=== PATIENT | female | born 1945 | race Caucasian/White ===

== ENCOUNTER 2017-03-08 22:39 | Emergency (ER) | payer MEDICARE ==
[~2017-03-08] VITALS: Ht 160 cm; Wt 69.2 kg
--- OUTSIDE RECORDS SUMMARY | 2017-03-08 22:45 | XMS REPORT | Continuity of Care Document ---
Author Author [facility] Organization [facility] Address Unknown Phone Unavailable Allergies Active Description Code Type Severity Reaction Onset Reported/Identified Relationship to Patient Clinical Status Yes No Known Allergies No Known Allergies Drug Allergy Unknown N/A 04/06/2014 Medications Problems Date Dx Coded Attending Type Code Diagnosis Diagnosed By 06/10/2013 Bryce Almonte MD(NAME ALERT) A 784.0 HEADACHE Procedures Results Encounters ACCT No. Visit Date/Time Discharge Status Pt. Type Provider Facility Loc./Unit Complaint [id number] 04/06/2014 11:23:00 2013 13:36:00 DIS Emergency Shira DAWN, Jamal Brown [facility] W.EDN [id number] 06/10/2013 15:30:00 2012 15:30:00 DIS Outpatient Bryce Almonte MD(NAME ALERT) [facility] W[facility]RAC
--- NOTE | 2017-03-08 23:00 | NUR ---
STATUS PT IS SEATED IN LOBBY WITH FAMIL, REDNESS AND SWELLING IS NOTED TO THE PT NOSE, BUT PT SHOWS NO S/S OF ACUTE DISTRESS AND IS VISITING WITH THOSE AROUND HER.
[2017-03-08 23:15] VITALS: Ht 160 cm; Wt 69.2 kg
[2017-03-09] MEDS ORDERED: BENZ-16 PO (00:03)
[2017-03-09] MEDS ORDERED: ALEN70TA48 PO (00:03)
[2017-03-09] MEDS ORDERED: ESOM40CA54 PO (00:03)
--- NOTE | 2017-03-09 00:16 | ERPDOC ---
Departure Disposition Decision Date: March 09, 2017 Disposition Decision Time: 00:15 Disposition: 01 DISCHARGED HOME, SELF-CARE Impression Impression Impression: Primary Impression: Nasal contusion Severity: Mild Condition: Improved Seen By: Physician only Patient Instructions: Facial Contusion (ED) Problems/Meds/Labs Reviewed?: Yes Medications reviewed and manag: Yes Additional Instructions: Use Tylenol as needed for pain, up to 1000 mg 4 times daily Cool pack to the nose as needed for comfort and swelling Follow up care ordered?: Yes Mental Status: Alert, Oriented [facility] General General Chief Complaint: Maxillofacial Injury Stated Complaint: POSS BROKEN NOSE Time Seen by Provider: 00:12 Source: patient, family Exam Limitations: language barrier [facility] General Initial Comments Patient was kicked in the face with a soccer ball several hours ago, striking her glasses and causing a large bruise to the left side of her nose. Family wanted the patient evaluated to be sure she didn't have a broken nose or need any emergency intervention. Patient has minimal pain at this time, no bleeding, had no loss of consciousness and her only other complaint is mild tenderness to the lateral left side of the nose. Occurred At: home Onset/Timing: Rapid Severity: mild Location: nose 1 - Minimal swelling with mild abrasion. Associated Symptoms: facial pain/swelling, DENIES: change in hearing, cough, drooling, ear drainage, fever, malaise, nasal congestion/drainage, poor fluid intake, sinus infection, sore throat, tooth pain, voice change Allergies: Coded Allergies: No Known Allergies (Unverified , 03/08/17) Past History Past Medical History Pt denies signifigant H Surgical History Denies Surgeries Social History Smoking Status: Never smoker Does patient use chewing tobac: No Second Hand Exposure: No Substance Use Type: does not use Review of Systems Constitutional Constitutional: DENIES: appetite decrease, appetite increase, chills, dizziness , fever, weakness ENMT Ears: DENIES: pain Hearing: DENIES: hearing loss, tinnitus Balance: DENIES: vertigo Nose: pain Mouth/Throat: DENIES: change in swallowing, change in voice, hoarsness, painful swallowing, sore throat Cardiovascular Cardiac: DENIES: chest pain, dyspnea on exertion Rhythm/Rate: DENIES: irregular beat, palpitations, tachycardia Vascular: DENIES: pedal edema Pulmonary Respiratory: DENIES: cough, dyspnea, pleuritic chest pain GI Upper Abdomen: DENIES: dysphagia, heartburn/indigestion, nausea, pain, vomiting Lower Abdomen: DENIES: blood in stool, constipation, diarrhea, pain General: DENIES: burning, dysuria, frequency, pain, urgency Musculoskeletal General: DENIES: cramps, joint pain, joint swelling, pain, weakness Integumentary Skin: DENIES: rash, sores Neurological General: DENIES: headache, numbness, tingling, vertigo, weakness Psychiatric Psychiatric: DENIES: anxiety, depression, nervousness Physical Exam General General Nourishment: well nourished, well developed, appears stated age, no acute distress General Body Habitus: well groomed Vitals and Pain First Documented Vital Signs Date Time Temp Pulse Resp B/P Pulse Ox O2 Delivery O2 Flow Rate FiO2 03/08/17 23:15 98.5 74 18 150/68 98 Room Air Weight: Kilograms: 69.200 Height (feet): 5 Height (inches): 3.00 Triage Pain Scale: RN VS reviewed by Provider: Yes Normal Exams: Head: Normocephalic w/o trauma Eyes: Pupils are PERRLA w/ EOMI, No scleral icterus, irritation, or foreign bodies noted Neck: Full range of motion, without adenopathy, JVD, bruits or thyromegaly Chest/Resp: Clear all burton, with good airflow, and symmetry bilaterally CV: Regular rate and rhythm, without murmur or gallop, Pulses 2+ all extremities, capillary refill, <2 seconds all ext., no pedal edema noted Abdomen: Bowel sounds positive, soft, non-tender, non-distended, no hepatosplenomegaly, masses or bruits noted Lymphatic: No lymphadenopathy, or lymphedema noted Musculoskeletal: No tenderness, or deformity noted, good range of motion, all extremities Integumentary: No rashes, hives, or bruising noted, hair and nails, without abnormality Neurologic: Patient is alert, and oriented, cranial nerves, motor/sensory/ cerebellar, exams w/o gross deficits, to observation Psychiatric: Patient exhibits, appropriate attention, emotion and affect ENMT (brief) ENMT Brief: FOUND: TM clear, TM good light reflex, ear canals clear, mucosa moist, nasal swelling, normal dentition, NOT FOUND: nasal erythema, nasal exudate, pharnyx erythema Comments Mild nasal on the lateral nasal bones of the left side only. Mild tenderness, no crepitus no bony deformity. No hematoma. Progress Progress Progress Patient reassured, given home care instructions. SHELLIE PAYNE MD March 09, 2017 00:16
--- OUTSIDE RECORDS SUMMARY | 2017-03-09 00:22 | XMS REPORT | Continuity of Care Document ---
Author Author [facility] Organization [facility] Address Unknown Phone Unavailable Allergies Active Description [...] Status Pt. Type Provider Facility Loc./Unit Complaint [id number] 04/06/2014 11:23:00 2013 13:36:00 DIS Emergency Shira DAWN, aJmal Brown [facility] W.EDN [id number] 06/10/2013 15:30:00 2012 15:30:00 DIS Outpatient Bryce Almonte MD(NAME ALERT) [facility]AC
[2017-03-09 00:25] VITALS: BP 150/68; PULSE 74; RESP 18; TEMP 98.5; O2SAT 98
== END 2017-03-09 00:25 | disposition home or self-care (01) ==
LOC: ED 22:39
DX: S00.33XA Contusion of nose, initial encounter (principal); W21.02XA Struck by soccer ball, initial encounter; Y93.9 Activity, unspecified; Y92.009 Unspecified place in unspecified non-institutional (private) residence as the place of occurrence of the external cause; Y99.8 Other external cause status